=== PATIENT | female | born 1940 | race Caucasian/White ===

== ENCOUNTER 2021-01-13 18:51 | Emergency (ER) | payer MEDICARE, MEDICAID, SELFPAY ==
--- NOTE | ~2021-01-13 | XR_ITS ---
XR wrist LT min 3V 01/13/2021 19:42 Indication: Left wrist pain after fall Procedure: 3 views left wrist Comparison: No prior studies for comparison. Findings: There is a comminuted intra-articular fracture distal aspect of the radius with dorsal disp lacement and angulation. There are advanced degenerative changes of the first CMC and triscaphe joint s. No other fractures identified. Mild soft tissue swelling. No foreign bodies. Impression: 1: Comminuted intra-articular fracture distal aspect of the left radius with dorsal displacement and angulation. Reviewed, dictated and finalized at location A. ERY GUMMER Impression: 1: Comminuted intra-articular fracture distal aspect of the left radius with do rsal displacement and angulation.
--- NOTE | ~2021-01-13 | XR_ITS ---
XR wrist LT 2V 01/13/2021 20:36 Indication: Post reduction left wrist fracture Procedure: 2 views left wrist Comparison: 01/13/2021 Findings: There is a comminuted intra-articular fracture of the distal aspect of the radius with impr adriana alignment. There is reduced dorsal displacement and angulation compared with prior study. Impression: 1: Improved alignment of comminuted intra-articular fracture distal aspect of the left radius post re duction. Reviewed, dictated and finalized at location A. R ATTENDANT Impression: 1: Improved alignment of comminuted intra-articular fracture distal aspect of t he left radius post reduction.
--- NOTE | ~2021-01-13 | XR_ITS ---
XR wrist LT min 3V 01/13/2021 20:55 Indication: Post reduction left wrist Procedure: 3 views left wrist Comparison: 01/13/2021 Findings: Stable alignment of comminuted intra-articular fracture of the distal aspect of the radius compared with most recent examination. Interval placement of overlying fiberglass cast. Degenerative changes of the left wrist redemonstrated. Mild ventral soft tissue swelling. No foreign bodies. Impression: 1: Stable alignment of comminuted intra-articular fracture of the distal aspect of the radius compare d with most recent examination. Reviewed, dictated and finalized at location A. ER WEIR Impression: 1: Stable alignment of comminuted intra-articular fracture of the distal aspect of the radius compared with most recent examination.
[2021-01-13 18:55] VITALS: BP 159/100; PULSE 73; RESP 16; TEMP 36.6; O2SAT 96
--- NOTE | 2021-01-13 19:34 | PC.NURSE ---
Xray in room at this time.
[2021-01-13] MEDS: oxyCODONE HCL (*CRX) 2.5 MG TAB IR PO ×2 (19:41→20:56)
--- NOTE | 2021-01-13 19:52 | PC.NURSE ---
Patient refusing CT. ERP notified.
--- NOTE | 2021-01-13 20:40 | PC.NURSE ---
LUH place sugartong splint on left wrist. MINDY, SANTANA, this RN and senior service technician placed splint on patient. Patient tolerated well.
--- NOTE | 2021-01-13 20:51 | PC.NURSE ---
Xray in room doing post reduction exam.
--- NOTE | 2021-01-13 20:54 | ED.UPPEXIN ---
HPI - Extremity Injury (Upper) General Chief Complaint: Extremity Injury, Upper Stated Complaint: fall, arm pain Time Seen by Provider: 01/13/21 19:23 Source: patient History of Present Illness HPI narrative: Patient presents with left wrist injury. Patient reports she was stepping down off of a stool when the stool slipped out from under her foot and she fell onto extended left upper extremity she had immediate pain to her left wrist and a deformity so she and the ER for evaluation. Reports pain around her left wrist denies any focal numbness or tingling. She denied striking her head she denies any nausea or vomiting Related Data Home Medications Medication Instructions Recorded Confirmed latanoprost 0.005 % eye drops 1 drop EACH EYE QPM 12/30/18 08/29/20 carteolol 1 % eye drops 1 drop EACH EYE Q12H 01/04/19 08/29/20 Allergies Allergy/AdvReac Type Severity Reaction Status Date / Time amoxicillin Allergy Unknown Unknown Verified 01/13/21 18:56 ampicillin Allergy Unknown Unknown Verified 01/13/21 18:56 Penicillins Allergy Unknown Unknown Verified 01/13/21 18:56 Review of Systems Review of Systems: CONSTITUTIONAL: Denies fever, chills, or sweats. EYES: Denies visual changes, redness, or discharge. ENT: Denies rhinorrhea, congestion, sore throat, or otalgia. CARDIOVASCULAR: Denies chest pain, palpitations, or edema. RESPIRATORY: Denies cough or dyspnea. GASTROINTESTINAL: Denies abdominal pain, nausea, vomiting, or diarrhea. GENITOURINARY: Denies dysuria or hematuria. SKIN: Denies rash or itching. MUSCULOSKELETAL: Denies back pain, joint pain, or myalgia. NEUROLOGIC: Denies headache, numbness, dizziness, or weakness. PSYCHIATRIC: Denies anxiety or depression. All systems reviewed & are unremarkable except as noted in HPI and below PMFSH Past Medical History Medical History Abnormal glucose Arthritis of right hip CKD (chronic kidney disease) stage 3, GFR 30-59 ml/min Dehydration Depression Hip replacement planned History of basal cell cancer Hypothyroidism Orthostatic hypotension Surgical History Surgical History History of hip replacement Hx of cataract extraction Family History Family History Grandparent Diabetes mellitus Sibling Diabetes mellitus Mother Family history of malignant neoplasm Social History Social History Smoking status: Never smoker Second hand tobacco smoke exposure: No Alcohol intake: current Alcohol use details: consumes wine occasoinally Substance use: never Substance use type: does not use Gender identity (if verbalized by the patient): Female Exam Narrative: GENERAL: Well-appearing, well-nourished, and in no acute distress. HEAD: Normocephalic, atraumatic. EYES: PERRLA and EOMI. ENT: Nares clear, no rhinorrhea or epistaxis. Mucous membranes moist. NECK: Supple. No masses. No JVD EXTREMITIES: Obvious deformity to the left wrist with surrounding edema and ecchymoses to extremity with sensation and strength intact refill less than 2 seconds there is no open or draining wounds. SKIN: Warm, dry, no rash. NEURO: No focal deficits. Alert and oriented x3. PSYCH: Normal mood and affect. Course Reevaluation(s) Reevaluation #1: Patient was treated with a splint postreduction films obtained and were reassuring. Patient continued to have sensation strength and cap refill intact after procedure. patient did decline CT scan of the head reports she does not have a headache did not strike her head. Patient is comfortable with outpatient plan. Date: 01/13/21 Time: 20:56 Vital Signs Vital signs: Vital Signs Temperature 36.6 C 01/13/21 18:55 Pulse Rate 73 01/13/21 18:55 Respiratory Rate 16 01/13/21 18:55 Blood Pressure 159/100 H 01/13/21 18:55
[2021-01-13 20:57] VITALS: BP 137/79; PULSE 74; RESP 18; O2SAT 98
== END 2021-01-13 21:13 | disposition home or self-care (01) ==
PROVIDERS: Emergency Provider Emergency Medicine; PCP Family Medicine
DX: S52.572A Other intraarticular fracture of lower end of left radius, initial encounter for closed fracture (principal); N18.30 Chronic kidney disease, stage 3 unspecified; M16.11 Unilateral primary osteoarthritis, right hip; Z85.828 Personal history of other malignant neoplasm of skin; E03.9 Hypothyroidism, unspecified; Z96.649 Presence of unspecified artificial hip joint; Z98.49 Cataract extraction status, unspecified eye; W11.XXXA Fall on and from ladder, initial encounter
CPT/HCPCS: 25565; 25605; 73100; 73110; 99285; A9270

== ENCOUNTER 2022-07-01 13:20 | Outpatient (CLI) | payer MEDICARE, MEDICAID, SELFPAY ==
--- NOTE | ~2022-07-01 | MM_ITS ---
EXAMINATION: MM diagnostic [place] LT w danita HISTORY: Left breast enlargement TECHNIQUE: Craniocaudal, mediolateral, and mediolateral oblique 3-D tomosynthesis images of the left breast were performed and synthetic 2-D images were generated. CAD analysis was submitted and interpr eted. COMPARISON: No prior mammogram is currently available for comparison. BREAST PARENCHYMAL COMPOSITION: There are scattered areas of fibroglandular density. FINDINGS: No suspicious mass, calcification, or architectural distortion are identified to suggest ma lignancy. No mammographic correlate is identified for the reported breast enlargement. IMPRESSION: 1. No specific mammographic correlate is identified for the reported left breast enlargement. Further evaluation at this time should be based on clinical assessment. Continued follow-up physical examina tion is recommended. 2. Routine screening mammography is recommended. BI-RADS Category 1: Negative Reviewed, dictated and finalized at location A. IMPRESSION: 1. No specific mammographic correlate is identified for the reported left breas t enlargement. Further evaluation at this time should be based on clinical asse ssment. Continued follow-up physical examination is recommended. 2. Routine screening mammography is recommended. BI-RADS Category 1: Negative
== END 2022-07-01 13:21 | disposition home or self-care (01) ==
LOC: ANHIMG 13:27
PROVIDERS: PCP Family Medicine; Visit Provider Family Medicine
DX: N64.59 Other signs and symptoms in breast (principal)
CPT/HCPCS: 77061; 77065; G0279

== ENCOUNTER → 2023-03-27 09:29 | Outpatient (CLI) | payer MEDICARE, MEDICAID, SELFPAY ==
--- NOTE | ~2023-03-27 | US_ITS ---
US breast LT complete DATE: 03/27/2023 10:29 INDICATION: Left breast enlargement TECHNIQUE: Real-time imaging of complete left breast, including all 4 quadrants and subareolar area COMPARISON: March 2023 bilateral screening mammogram July 01, 2022 diagnostic left mammogram FINDINGS: No suspicious mass or shadowing, cyst or other significant sonographic abnormality of the l eft breast is detected. IMPRESSION: BI-RADS Category 1: Negative Recommendation: Routine annual mammographic screening Reviewed, dictated and finalized at Location A. Reviewed, dictated and finalized at location A. NEERING AND DEVELOPMENT DIRECTOR
--- NOTE | ~2023-03-27 | MM_ITS ---
EXAMINATION: MM screening [place] BI w danita HISTORY: Screening mammogram TECHNIQUE: Craniocaudal and mediolateral oblique 3-D tomosynthesis images were obtained and synthetic 2-D images were generated. CAD analysis was submitted and interpreted. COMPARISON: July 01, 2022 left diagnostic mammogram BREAST PARENCHYMAL COMPOSITION: There are scattered areas of fibroglandular density. FINDINGS: There is no evidence of suspicious mass, calcification, or architectural distortion to sugg est malignancy in either breast. There has been no suspicious interval change. IMPRESSION: 1. No mammographic evidence of malignancy. 2. Recommend routine screening mammography in one year. BI-RADS Category 1: Negative Reviewed, dictated and finalized at location A. ADER
== END ==
PROVIDERS: PCP Physician Assistant; Visit Provider Physician Assistant
DX: Z12.31 Encounter for screening mammogram for malignant neoplasm of breast (principal); N64.89 Other specified disorders of breast
CPT/HCPCS: 76641; 77063; 77067